=== PATIENT | male | born 2000 | race Caucasian/White ===

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

== ENCOUNTER 2023-01-09 10:27 | Outpatient (CLI) | payer OTHER ==
--- NOTE | 2023-01-09 17:16 | XRAY Report ---
PROCEDURE: Knee 3 View LT INDICATIONS: [employer]ST INJURED IN COLLISION, ANKLE KNEE PAIN TECHNIQUE: 3 views of the left knee(s) were acquired. COMPARISON: None. FINDINGS: Bones: No fractures or dislocations. Slight lateral subluxation of patella is seen. No suspicious b jone lesions. Soft tissues: No knee joint effusion. No suspicious soft tissue calcifications or masses. IMPRESSION: No acute bony abnormality. Slight lateral subluxation of patella. Small suprapatellar joint effusion. Reviewed by: Shoaib Urbina MD on 01/09/2023 5:15 PM PDT Approved by: Shoaib Urbina MD on 01/09/2023 5:15 PM PDT Station ID: [id number]
== END 2023-01-09 10:28 | disposition home or self-care (01) ==
LOC: DI.N 10:27
PROVIDERS: ATTEND Registered Nurse
DX: S83.002A Unspecified subluxation of left patella, initial encounter (principal); M25.462 Effusion, left knee